=== PATIENT | male | born 1985 ===

== ENCOUNTER 2021-05-10 06:59 | Day surgery (SDC) | payer BC ==
[~2021-05-10] VITALS: Ht 182.9 cm; Wt 87.2 kg
[2021-05-10 07:21] VITALS: BP 132/91; PULSE 88; TEMP 98.5
[2021-05-10 08:45] VITALS: BP 115/75; PULSE 80; TEMP 98.2
--- NOTE | 2021-05-10 08:45 | NUR ---
Pt returns to [facility] from [facility], alert and oriented, ambulates to recliner. VSS. Denies pain or nausea. Mom at bedside. Call light in reach.
[2021-05-10 09:00] VITALS: BP 124/70; PULSE 72
--- NOTE | 2021-05-10 09:00 | NUR ---
Pt tolerates sprite well, VSS, denies pain or nausea. Dr. Pittman talks with pt and his mom.
[2021-05-10 09:15] VITALS: BP 111/82; PULSE 69
[2021-05-10 09:30] VITALS: BP 108/78; PULSE 69
--- NOTE | 2021-05-10 09:30 | NUR ---
Pt ready to go home, denies needs. 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 Pittman's office for follow up instructions. IV d/c'd to right hand. Pt taken out via wheelchair to private car and left in care of his mom at [id number].
== END 2021-05-10 09:49 | disposition home or self-care (01) ==
LOC: SDCO 06:59
DX: K29.50 Unspecified chronic gastritis without bleeding (principal); K29.80 Duodenitis without bleeding; D12.5 Benign neoplasm of sigmoid colon; K25.9 Gastric ulcer, unspecified as acute or chronic, without hemorrhage or perforation; K22.10 Ulcer of esophagus without bleeding; K44.9 Diaphragmatic hernia without obstruction or gangrene; K57.30 Diverticulosis of large intestine without perforation or abscess without bleeding; K21.9 Gastro-esophageal reflux disease without esophagitis; M19.90 Unspecified osteoarthritis, unspecified site; R93.3 Abnormal findings on diagnostic imaging of other parts of digestive tract; G89.29 Other chronic pain; R19.7 Diarrhea, unspecified; R19.4 Change in bowel habit; R50.9 Fever, unspecified; Z87.891 Personal history of nicotine dependence; Z87.11 Personal history of peptic ulcer disease; Z20.822 Contact with and (suspected) exposure to COVID-19; Z82.49 Family history of ischemic heart disease and other diseases of the circulatory system
CPT/HCPCS: J2704; J7030